=== PATIENT | female | born 1985 | race Caucasian/White ===

== ENCOUNTER 2024-05-13 09:33 | Emergency (ER) | payer MEDICAID ==
[~2024-05-13] VITALS: Ht 165.1 cm; Wt 65.8 kg
[2024-05-13] MEDS ORDERED: ONDANSETRON HCL/PF 4 MG/2 ML VIAL ONE (09:52)
[2024-05-13] MEDS ORDERED: MORPHINE SULFATE INJ 4 MG/ML DISP.SYRIN ONE ×2 (09:52→12:20)
[2024-05-13 10:09] LABS: BASOPHILS # (AUTO) 0.1 K/uL (0.0-0.2); BASOPHILS % (AUTO) 0.9 % (0.0-2.0); EOSINOPHILS # (AUTO) 0.1 K/uL (0.0-0.7); EOSINOPHILS % (AUTO) 0.7 % (0.0-6.0); HEMATOCRIT 42 % (33-45); HEMOGLOBIN 13.9 g/dL (11.5-14.8); LYMPHOCYTES % (AUTO) 11.3 % (20.0-44.0); MEAN CORPUSCULAR HEMOGLOBIN 31 PG (26.0-33.0); MEAN CORPUSCULAR HGB CONC 33 g/dl (31.0-36.0); MEAN CORPUSCULAR VOLUME 93 fL (82-100); MONOCYTES # (AUTO) 0.7 K/uL (0.1-1.30); MONOCYTES % (AUTO) 8.4 % (2.0-12.0); NEUTROPHILS # (AUTO) 6.7 K/uL (1.8-8.9); NEUTROPHILS % (AUTO) 78.7 % (43.0-81.0); PLATELET COUNT (AUTO) 299 K/uL (150-450); RED BLOOD CELL COUNT(AUTO) 4.52 MIL/uL (4.0-5.2); RED CELL DISTRIBUTION WIDTH 14.9 % (11.5-15.0); WHITE BLOOD COUNT (AUTO) 8.6 K/uL (4.3-11.0)
[2024-05-13] MEDS: IV NS 0.9% 1,000 ML BAG IV ONE ×2 (10:09→11:01)
[2024-05-13] MEDS: ONDANSETRON HCL/PF 4 MG/2 ML VIAL IVP ONE (10:10)
[2024-05-13] MEDS: MORPHINE SULFATE INJ 2 MG/ML DISP.SYRIN IV ONE ×2 (10:10→12:32)
[2024-05-13 10:31] LABS: ALBUMIN 3.9 g/dL (3.4-5.0); BILIRUBIN,DIRECT 0.2 mg/dL (0.0-0.2); BILIRUBIN,TOTAL 0.9 mg/dL (0.2-1.0); CALCIUM, SERUM 9.9 mg/dL (8.5-10.1); CREATININE 0.7 mg/dL (0.6-1.3); POTASSIUM 3.7 mmol/L (3.5-5.1); TOTAL PROTEIN, SERUM 7.9 g/dL (6.4-8.2)
[2024-05-13 11:55] LABS: APPEARANCE,URINE CLOUDY (CLEAR); BILIRUBIN,URINE NEGATIVE (NEGATIVE); BLOOD, URINE 1+ Ery/uL (NEGATIVE); COLOR,URINE YELLOW (YELLOW); KETONES,URINE 1+ mg/dL (NEGATIVE); LEUKOCYTE ESTERASE ,URINE NEGATIVE (NEGATIVE); NITRITE, URINE NEGATIVE (NEGATIVE); PH,URINE 7.5 (5.0-8.0); PROTEIN,URINE NEGATIVE (NEGATIVE); UGLUCOSE NEGATIVE (NEGATIVE); UROBILINOGEN,URINE 0.2 EU/dL (0.2)
[2024-05-13 12:13] LABS: ADD URINE CULTURE YES; BACTERIA,URINE None seen /HPF (None Seen); SQUAMOUS EPITHELIAL CELL,UR Many /HPF (None Seen); YEAST,URINE None Seen /HPF (None Seen)
[2024-05-13 12:14] LABS: TRICHOMONAS,URINE None Seen /HPF (None Seen); TYROSINE CRYSTAL,URINE Rare /HPF (None Seen); URINE AMORPHOUS PHOSPHATES Few /HPF (None Seen)
[2024-05-13] MEDS ORDERED: diphenhydrAMINE HCL 50 MG/ML VIAL ONE (12:20)
[2024-05-13] MEDS ORDERED: METOCLOPRAMIDE HCL 10 MG/2 ML VIAL ONE (12:21)
[2024-05-13 12:29] LABS: PREGNANCY TEST URINE QUAL NEGATIVE (NEGATIVE)
[2024-05-13] MEDS: METOCLOPRAMIDE HCL 10 MG/2 ML VIAL IV ONE (12:30)
[2024-05-13] MEDS: diphenhydrAMINE HCL 50 MG/ML VIAL IV ONE (12:31)
[2024-05-13 12:37] LABS: AMPHETAMINE, URINE NEGATIVE (NEGATIVE); BARBITURATE, URINE NEGATIVE (NEGATIVE); BENZODIAZEPINE, URINE NEGATIVE (NEGATIVE); COCCAINE, URINE NEGATIVE (NEGATIVE); PHENCYCLIDINE SCREEN,URINE NEGATIVE (NEGATIVE)
[2024-05-13 12:41] LABS: CANNABINOID, URINE POSITIVE (NEGATIVE); OPIATE, URINE POSITIVE (NEGATIVE)
[2024-05-13] MEDS ORDERED: HYDR-4303 PO (15:17)
[2024-05-13] MEDS ORDERED: ONDA4TAB5 PO (15:17)
[2024-05-13] MEDS ORDERED: CEFD300C3 PO (15:17)
[2024-05-13] MEDS ORDERED: HALOPERIDOL LACTATE INJ 5 MG/ML VIAL ONE (16:13)
[2024-05-13] MEDS: HALOPERIDOL LACTATE INJ 5 MG/ML VIAL IV ONE (16:18)
[2024-05-13 17:09] VITALS: BP 121/82; TEMP 98.2; O2SAT 98
== END 2024-05-13 17:09 | disposition home or self-care (01) ==
LOC: ER 09:33
DX: K50.90 Crohn's disease, unspecified, without complications (principal); N39.0 Urinary tract infection, site not specified; F12.10 Cannabis abuse, uncomplicated; R10.2 Pelvic and perineal pain; R10.84 Generalized abdominal pain; R11.2 Nausea with vomiting, unspecified; Z20.822 Contact with and (suspected) exposure to COVID-19; Z88.1 Allergy status to other antibiotic agents
CPT/HCPCS: 99285; 96374; 96361; 96375; 96376; 74176; 85025; 80048; 83690; 80076; 84703; 81001; 36415; 87426; 80320; 80307; J1200; J2270 ×2; J2765; J2405; J7030 ×2; G0480; J1630